=== PATIENT | female | born 1970 | race Caucasian/White ===

== ENCOUNTER 2017-07-01 14:10 | Emergency (ER) | payer OTHER, MEDICAID ==
[~2017-07-01] VITALS: Ht 157.5 cm; Wt 85.7 kg
[2017-07-01 14:15] VITALS: BP_SYST 139
[2017-07-01] MEDS ORDERED: KETOROLAC TROMETHAMINE 60 MG/2 ML VIAL IM ONE (14:30)
[2017-07-01] MEDS ORDERED: DEXAMETHASONE SOD PHOSPHATE 10 MG/ML VIAL IM ONE (14:30)
[2017-07-01] MEDS ORDERED: OSELTAMIVIR PHOSPHATE 75 MG CAPSULE PO ONE (15:00)
[2017-07-01 15:35] VITALS: BP_SYST 128
== END 2017-07-01 15:35 | disposition home or self-care (01) ==
LOC: SED 14:10
DX: J10.1 Influenza due to other identified influenza virus with other respiratory manifestations (principal); F41.9 Anxiety disorder, unspecified; R03.0 Elevated blood-pressure reading, without diagnosis of hypertension; Z90.49 Acquired absence of other specified parts of digestive tract
CPT/HCPCS: 36415; 81025; 86710; 96372; 99284; G9035; J1100; J1885

== ENCOUNTER 2017-07-03 20:08 | Emergency (ER) | payer OTHER, MEDICAID ==
[~2017-07-03] VITALS: Ht 157.5 cm; Wt 85.7 kg
[2017-07-03 20:20] VITALS: BP_SYST 130
--- NOTE | 2017-07-03 21:06 | NUR ---
PT ADVISED ADMITTING THAT SHE NO LONGER WANTED TO WAIT FOR THE MD. I WENT OUTSIDE TO TALK TO PT BUT SHE ALREADY LEFT. PT LWBS
== END 2017-07-03 21:06 | disposition left against medical advice (07) ==
LOC: SED 20:08
DX: R05 Cough (principal); R09.89 Other specified symptoms and signs involving the circulatory and respiratory systems; F41.9 Anxiety disorder, unspecified; Z53.21 Procedure and treatment not carried out due to patient leaving prior to being seen by health care provider

== ENCOUNTER 2017-07-03 23:31 | Emergency (ER) | payer OTHER, MEDICAID ==
[~2017-07-03] VITALS: Ht 157.5 cm; Wt 85.7 kg
[2017-07-04 00:15] VITALS: BP_SYST 124
[2017-07-04] MEDS ORDERED: LevALBUTEROL HCL 1.25 MG/0.5 ML *CONC.* VIAL.NEB (XOPENEX CONC.) INH ONE (02:45)
[2017-07-04 03:50] VITALS: BP_SYST 117
== END 2017-07-04 03:50 | disposition home or self-care (01) ==
LOC: SED 23:31
DX: J11.1 Influenza due to unidentified influenza virus with other respiratory manifestations (principal); F41.9 Anxiety disorder, unspecified; Z90.49 Acquired absence of other specified parts of digestive tract
CPT/HCPCS: 36415; 86403; 87081; 94640; 99284

== ENCOUNTER 2017-10-03 08:10 | Emergency (ER) | payer OTHER, MEDICAID ==
[~2017-10-03] VITALS: Ht 157.5 cm; Wt 85.7 kg
[2017-10-03 08:13] VITALS: BP_SYST 138
[2017-10-03 08:42] LABS: BILIRUBIN,URINE NEGATIVE (NEGATIVE); BLOOD, URINE 1+ (NEGATIVE); CLARITY/URINE HAZY (CLEAR); COLOR,URINE YELLOW (YELLOW); GLUCOSE,URINE NEGATIVE (NEGATIVE); KETONES,URINE NEGATIVE (NEGATIVE); LEUKOCYTE ESTERASE ,URINE NEGATIVE (NEGATIVE); NITRITE, URINE NEGATIVE (NEGATIVE); PROTEIN URINE NEGATIVE (NEGATIVE); UROBILINOGEN,URINE 0.2 (0.2-1.0)
[2017-10-03 09:01] LABS: BACTERIA,URINE MANY /HPF (None Seen); MUCUS,URINE None Seen /LPF (None Seen)
[2017-10-03] MEDS ORDERED: KETOROLAC TROMETHAMINE 60 MG/2 ML VIAL IM ONE (09:30)
[2017-10-03 10:04] VITALS: BP_SYST 131
== END 2017-10-03 10:04 | disposition home or self-care (01) ==
LOC: SED 08:10
DX: M54.5 Low back pain (principal); R42 Dizziness and giddiness
CPT/HCPCS: 72100; 81000; 81025; 87086; 96372; 99285; J1885

== ENCOUNTER 2024-01-20 23:17 | Emergency (ER) | payer OTHER, MEDICAID ==
[~2024-01-20] VITALS: Ht 157.5 cm; Wt 69.4 kg
[2024-01-20 23:34] VITALS: BP_SYST 116; PULSE 58; RESP 20; TEMP 97.6; O2SAT 98
== END 2024-01-21 00:40 | disposition left against medical advice (07) ==
LOC: SED 23:17
DX: R21 Rash and other nonspecific skin eruption (principal); Z53.21 Procedure and treatment not carried out due to patient leaving prior to being seen by health care provider